=== PATIENT | female | born 1975 | race Hispanic/Latino ===

== ENCOUNTER 2020-08-19 10:00 | Inpatient (IN) | payer MEDICARE ==
[~2020-08-19] VITALS: Ht 144.8 cm; Wt 54.9 kg
[2020-08-19 10:33] LABS: BASOPHILS % (AUTO) 0.3 % (0.0-5.0); EOSINOPHILS % (AUTO) 4.4 % (0.0-8.0); HEMATOCRIT 31.2 % (36-48); MEAN CORPUSCULAR HEMOGLOBIN 30.5 pg (27.0-33.0); MEAN CORPUSCULAR HGB CONC 32.7 g/dL (32.0-36.0); MEAN CORPUSCULAR VOLUME 93.4 fL (79-99); NEUTROPHILS % (AUTO) 82.9 % (40.0-77.0); PLATELET COUNT (AUTO) 326 K/uL (130-400); RED BLOOD CELL COUNT(AUTO) 3.34 MIL/uL (4.00-5.50); RED CELL DISTRIBUTION WIDTH 17.7 % (11.0-15.5); WHITE BLOOD COUNT (AUTO) 17.2 K/uL (4.8-10.8)
[2020-08-19 10:44] LABS: CARBON DIOXIDE 28 mmol/L (21-32); CHLORIDE 91 mmol/L (101-111); CREATININE 4.5 mg/dL (0.5-1.5); GLOMERULAR FILTR. RATE CALC 11 mL/min (>60); GLUCOSE,RANDOM 232 mg/dL (70-105); POTASSIUM 4.4 mmol/L (3.5-5.1); SODIUM SERUM 128 mmol/L (136-145); UREA NITROGEN, BLOOD 69 mg/dL (7-18)
[2020-08-19 10:45] LABS: PROTHROMBIN TIME 10.9 SEC (9.6-11.6)
[2020-08-19 10:46] LABS: PARTIAL THROMBOPLASTIN TIME 23.9 SEC (26.3-35.5)
[2020-08-19 10:55] LABS: ALANINE AMINOTRANSFERASE 38 U/L (12-78); ALBUMIN 2.8 g/dL (3.5-5.0); ASPARTATE AMINOTRANSFERASE 39 U/L (10-37); BILIRUBIN,TOTAL 0.4 mg/dL (0.2-1.0); CREATINE KINASE, TOTAL 98 U/L (21-232); MYOGLOBIN 192 ng/mL (10-92); TROPONIN I < 0.04 ng/mL (0.00-0.06)
[2020-08-19] MEDS ORDERED: 0.9%NACL 1000ML 1,000 ML IV ONE (13:10)
[2020-08-19 13:11] LABS: APPEARANCE,URINE Turbid (CLEAR); BILIRUBIN,URINE Negative (NEGATIVE); COLOR,URINE Yellow (YELLOW); GLUCOSE, URINE (UA) 500 mg/dL (NEGATIVE); KETONES,URINE Negative (NEGATIVE); LEUKOCYTE ESTERASE ,URINE Small (NEGATIVE); NITRATE,URINE Negative (NEGATIVE); OCCULT BLOOD,URINE Large (NEGATIVE); PROTEIN,URINE >=1000 mg/dL (NEGATIVE); UROBILINOGEN,URINE 0.2 mg/dL (0.2-1.0)
[2020-08-19 13:22] LABS: AMPHET/METH SCREEN,URINE NEGATIVE (NEGATIVE); BARBITURATE SCREEN, URINE NEGATIVE (NEGATIVE); BENZODIAZEPINES SCREEN,URINE NEGATIVE (NEGATIVE); CANNABINOID SCREEN,URINE NEGATIVE (NEGATIVE); COCAINE SCREEN,URINE NEGATIVE (NEGATIVE); OPIATE SCREEN,URINE NEGATIVE (NEGATIVE); PHENCYCLIDINE SCREEN,URINE NEGATIVE (NEGATIVE)
[2020-08-19 13:25] LABS: BACTERIA,URINE Few /HPF (None Seen); WBC,URINE >100 /HPF (0-1)
[2020-08-19 13:26] LABS: ABG BASE EXCESS 2.3 mmol/L (-2.0-3.0); ABG HCO3 26.9 mmol/L (21.0-28.0); ABG OXYGEN SATURATION 92.5 % (95.0-99.0); ABG PCO2 42 mmHg (32-45)
[2020-08-19 13:26] LABS: MUCUS,URINE Few LPF (None Seen); RENAL EPITHELIAL CELLS,URINE Rare /HPF (None Seen); TRANSITIONAL EPI CELLS,URINE Few /HPF (None Seen)
[2020-08-19] MEDS ORDERED: VANCOMYCIN 1G/250ML KIT 250 ML IV ONE (13:51)
[2020-08-19] MEDS ORDERED: VANCOMYCIN 1G/250ML KIT 250 ML IV SCH (14:00)
[2020-08-19] MEDS ORDERED: ZOSYN 3.375GM+NS 50ML 50 ML IV SCH (14:30)
[2020-08-19] MEDS ORDERED: ZOSYN 3.375GM+NS 50ML 50 ML IV ONE ×2 (16:24→23:05)
[2020-08-19] MEDS ORDERED: ONDANSETRON 4MG INJ IVP PRN (17:15)
[2020-08-19] MEDS ORDERED: VANCOMYCIN PROTOCOL PER PHARMACY IV SCH (17:15)
[2020-08-19] MEDS ORDERED: AZITHROMYCIN 500MG+NS 250ML 250 ML IV ONE (23:37)
[2020-08-20] MEDS ORDERED: ZOSYN 3.375GM+NS 50ML 50 ML IV ONE ×2 (08:46→20:57)
[2020-08-20] MEDS ORDERED: PANTOPRAZOLE 40 MG/VIAL ONE (08:46)
[2020-08-20] MEDS ORDERED: PANTOPRAZOLE 40 MG/VIAL IVP SCH (09:00)
[2020-08-20] MEDS ORDERED: METOPROLOL TARTRATE 25 MG TAB ONE (15:20)
[2020-08-20] MEDS ORDERED: HYDRALAZINE 25MG TABLET ONE ×3 (15:20→20:47)
[2020-08-20] MEDS ORDERED: LEVETIRACETAM 500 MG TABLET PO ONE (15:24)
[2020-08-21] MEDS ORDERED: HYDRALAZINE 25MG TABLET ONE ×2 (08:29→13:41)
[2020-08-21] MEDS ORDERED: LEVOTHYROXINE 100 MCG TABLET ONE (08:30)
[2020-08-21] MEDS ORDERED: ZOSYN 3.375GM+NS 50ML 50 ML IV ONE ×2 (08:30→20:35)
[2020-08-21] MEDS ORDERED: AMLODIPINE 5 MG TAB ONE (08:30)
[2020-08-21] MEDS ORDERED: SERTRALINE HCL 50 MG TABLET ONE (08:30)
[2020-08-21] MEDS ORDERED: LEVETIRACETAM 500 MG TABLET PO ONE (08:31)
[2020-08-21] MEDS ORDERED: METOPROLOL TARTRATE 25 MG TAB ONE (08:31)
[2020-08-21 08:51] LABS: BASOPHILS % (AUTO) 0.3 % (0.0-5.0); EOSINOPHILS % (AUTO) 6.3 % (0.0-8.0); HEMATOCRIT 28.3 % (36-48); LYMPHOCYTES % (AUTO) 8.5 % (21.0-51.0); MEAN CORPUSCULAR HEMOGLOBIN 30.9 pg (27.0-33.0); MEAN CORPUSCULAR HGB CONC 33.6 g/dL (32.0-36.0); MEAN CORPUSCULAR VOLUME 92.2 fL (79-99); MONOCYTES % (AUTO) 6.7 % (3.0-13.0); NEUTROPHILS % (AUTO) 77.7 % (40.0-77.0); PLATELET COUNT (AUTO) 324 K/uL (130-400); RED BLOOD CELL COUNT(AUTO) 3.07 MIL/uL (4.00-5.50); RED CELL DISTRIBUTION WIDTH 16.7 % (11.0-15.5); WHITE BLOOD COUNT (AUTO) 9.4 K/uL (4.8-10.8)
[2020-08-21 09:01] LABS: CREATININE 3.7 mg/dL (0.5-1.5); POTASSIUM 3.5 mmol/L (3.5-5.1)
[2020-08-21 09:06] LABS: ALBUMIN 2.5 g/dL (3.5-5.0); BILIRUBIN,TOTAL 0.8 mg/dL (0.2-1.0); MAGNESIUM 2.4 mg/dL (1.80-2.40); PHOSPHORUS 4.4 mg/dL (2.5-4.9); TOTAL PROTEIN, SERUM 8.7 g/dL (6.0-8.3)
[2020-08-21] MEDS ORDERED: VANCOMYCIN 1G/250ML KIT 250 ML IV ONE (13:41)
[2020-08-21] MEDS: VANCOMYCIN 1G/250ML KIT 250 ML IV SCH (14:00)
[2020-08-21] MEDS: ZOSYN 3.375GM+NS 50ML 50 ML IV SCH (21:00)
[2020-08-22] VITALS: BP 183/82
[2020-08-22 04:08] VITALS: BP 154/79
[2020-08-22] MEDS ORDERED: HYDR50TA36 PEG (08:09)
[2020-08-22] MEDS ORDERED: METO25 PEG (08:09)
[2020-08-22] MEDS ORDERED: ATOR10TA69 PEG (08:09)
[2020-08-22] MEDS ORDERED: LEVO50TA11 PEG (08:09)
[2020-08-22] MEDS ORDERED: PANT40TA54 PEG (08:13)
[2020-08-22] MEDS ORDERED: LEVE500L PEG (08:13)
[2020-08-22] MEDS ORDERED: AMLO-257 PEG (08:13)
[2020-08-22] MEDS ORDERED: SERT-439 PEG (08:13)
[2020-08-22 08:14] LABS: HEPATITIS A ANTIBODY IGM Negative (Negative); HEPATITIS B CORE IGM Negative (Negative); HEPATITIS Bs ANTIGEN SCREEN P Negative (Negative)
[2020-08-22] MEDS: FAMOTIDINE 20MG VIAL IV SCH (08:34)
[2020-08-22 09:45] VITALS: BP 170/87
[2020-08-22] MEDS ORDERED: HEPARIN 5,000 UNIT VIAL ONE (11:58)
[2020-08-22 12:20] VITALS: BP 109/69
[2020-08-22 17:19] VITALS: BP 117/84
[2020-08-22 20:00] VITALS: BP_SYST 142; BP_SYST 176; BP_DIAS 63; BP_DIAS 86
[2020-08-22] MEDS ORDERED: SERTRALINE HCL 50 MG TABLET PEG SCH (21:00)
[2020-08-22] MEDS: LEVETIRACETAM 100 MG/ML 5 ML UDCUP PEG SCH (22:11)
[2020-08-22] MEDS: METOPROLOL TARTRATE 25 MG TAB PEG SCH (22:11)
[2020-08-22] MEDS: HYDRALAZINE 25MG TABLET PEG SCH (22:12)
[2020-08-22] MEDS: ZOSYN 3.375GM+NS 50ML 50 ML IV SCH (22:12)
[2020-08-23] VITALS: BP 186/82
[2020-08-23 04:00] VITALS: BP 166/74
[2020-08-23 08:01] VITALS: BP 166/87
[2020-08-23 11:11] VITALS: BP 168/79
[2020-08-23] MEDS: METOPROLOL TARTRATE 25 MG TAB PEG SCH (11:26)
[2020-08-23] MEDS: ZOSYN 3.375GM+NS 50ML 50 ML IV SCH (11:27)
[2020-08-23] MEDS: FAMOTIDINE 20MG VIAL IV SCH (11:27)
[2020-08-23] MEDS: HYDRALAZINE 25MG TABLET PEG SCH ×2 (11:27→15:18)
[2020-08-23 15:18] LABS: HEMATOCRIT 30.9 % (36-48); MEAN CORPUSCULAR HEMOGLOBIN 30.2 pg (27.0-33.0); MEAN CORPUSCULAR VOLUME 91.4 fL (79-99); PLATELET COUNT (AUTO) 212 K/uL (130-400); RED BLOOD CELL COUNT(AUTO) 3.38 MIL/uL (4.00-5.50); RED CELL DISTRIBUTION WIDTH 16.1 % (11.0-15.5); WHITE BLOOD COUNT (AUTO) 6.5 K/uL (4.8-10.8)
[2020-08-23] MEDS: VANCOMYCIN 1G/250ML KIT 250 ML IV SCH (15:18)
[2020-08-23] MEDS: LEVETIRACETAM 100 MG/ML 5 ML UDCUP PEG SCH (15:18)
[2020-08-23 15:25] LABS: CREATININE 3.8 mg/dL (0.5-1.5); MAGNESIUM 2.4 mg/dL (1.80-2.40); POTASSIUM 3.6 mmol/L (3.5-5.1)
[2020-08-23 15:33] LABS: BAND NEUTROPHILS % (MANUAL) 2 % (0-2); EOSINOPHILS % (MANUAL) 4 % (1-6); LYMPHOCYTES % (MANUAL) 11 % (22-44); MAN.DIFF COMMENT-IMPRESSION MANUAL DIFFERENTIAL; MONOCYTES % (MANUAL) 6 % (2-9); REACTIVE LYMPHOCYTES 4 % (0-0); SEGMENTED NEUTROPHILS % 73 % (40-70)
[2020-08-23 16:27] VITALS: BP 138/60
[2020-11-25] MEDS ORDERED: CALC667C10 PO (20:12)
== END 2020-08-23 18:39 | disposition home health service (06) | DRG 871 ==
LOC: EDH 10:00 → EDHIP 16:05 → 3AH 08-20 04:44 → EDHIP 08-20 04:59 → 3BH 08-21 22:19
PROVIDERS: ADMIT Internal Medicine; ATTEND Internal Medicine
PROC: 5A1D70Z Performance of Urinary Filtration, Intermittent, Less than 6 Hours Per Day (ICD-10-PCS; principal; 2020-08-19)
PROC: 5A1D70Z Performance of Urinary Filtration, Intermittent, Less than 6 Hours Per Day (ICD-10-PCS; 2020-08-22)
DX: A41.50 Gram-negative sepsis, unspecified (principal); G93.41 Metabolic encephalopathy; N18.6 End stage renal disease; E87.1 Hypo-osmolality and hyponatremia; N39.0 Urinary tract infection, site not specified; I12.0 Hypertensive chronic kidney disease with stage 5 chronic kidney disease or end stage renal disease; G91.9 Hydrocephalus, unspecified; E11.22 Type 2 diabetes mellitus with diabetic chronic kidney disease; R53.81 Other malaise; D63.8 Anemia in other chronic diseases classified elsewhere; E87.5 Hyperkalemia; Z20.822 Contact with and (suspected) exposure to COVID-19; Z93.1 Gastrostomy status; Z99.2 Dependence on renal dialysis; Z74.01 Bed confinement status; Z86.14 Personal history of Methicillin resistant Staphylococcus aureus infection; Z98.2 Presence of cerebrospinal fluid drainage device; Z86.73 Personal history of transient ischemic attack (TIA), and cerebral infarction without residual deficits; Z83.3 Family history of diabetes mellitus
CPT/HCPCS: 36415; 36600; 70450; 71045; 80048; 80053; 80074; 80305; 81001; 82550; 82803; 83605; 83735; 83874; 84100; 84145; 84484; 85025; 85610; 85730; 86900; 86901; 87040; 87088; 87426; 90935; 93005; C9113; G0378; J0456; J1644; J2543; J3370; J3490; J7030; U0003

== ENCOUNTER → 2020-11-01 | Outpatient (CLI) | payer MEDICARE ==
[~2020-11-01] MED LIST: AMLO-257 PEG; ATOR10TA69 PEG; HYDR50TA36 PEG; LEVE500L PEG; LEVO50TA11 PEG; METO25 PEG; PANT40TA54 PEG; SERT-439 PEG
== END | disposition home or self-care (01) ==
LOC: RAH 11:00
PROVIDERS: ATTEND Internal Medicine
DX: I62.9 Nontraumatic intracranial hemorrhage, unspecified (principal); R13.10 Dysphagia, unspecified; R47.01 Aphasia; T17.900S Unspecified foreign body in respiratory tract, part unspecified causing asphyxiation, sequela; I63.9 Cerebral infarction, unspecified
CPT/HCPCS: 74230; 92611

== ENCOUNTER 2021-01-04 17:22 | Emergency (ER) | payer MEDICARE ==
[~2021-01-04] VITALS: Ht 157.5 cm; Wt 68.0 kg
[~2021-01-04 17:22] MED LIST changes: -AMLO-257 PEG; +AMLO-257 PO; -ATOR10TA69 PEG; +ATOR10TA69 PO; +CALC667C10 PO; -HYDR50TA36 PEG; +HYDR50TA36 PO; -LEVE500L PEG; +LEVE500L PO; -LEVO50TA11 PEG; +LEVO50TA11 PO; -METO25 PEG; +METO25 PO; -PANT40TA54 PEG; +PANT40TA54 PO; -SERT-439 PEG; +SERT-439 PO
[2021-01-04 17:41] VITALS: BP 156/71
[2021-01-04 18:46] VITALS: BP 135/62
[2021-01-05 00:34] VITALS: BP 135/62
== END 2021-01-04 23:00 | disposition home or self-care (01) ==
LOC: EDH 17:22
DX: G40.909 Epilepsy, unspecified, not intractable, without status epilepticus (principal); I95.9 Hypotension, unspecified; E78.00 Pure hypercholesterolemia, unspecified; N18.6 End stage renal disease; Z86.73 Personal history of transient ischemic attack (TIA), and cerebral infarction without residual deficits; Z99.2 Dependence on renal dialysis; Z79.899 Other long term (current) drug therapy
CPT/HCPCS: 70450; 93005

== ENCOUNTER 2021-01-25 00:26 | Emergency (ER) | payer MEDICARE ==
[~2021-01-25 00:26] MED LIST changes: +AMLO-257 PEG; -AMLO-257 PO; +ATOR10TA69 PEG; -ATOR10TA69 PO; +HYDR50TA36 PEG; -HYDR50TA36 PO; +LEVE500L PEG; -LEVE500L PO; +LEVO50TA11 PEG; -LEVO50TA11 PO; +METO25 PEG; -METO25 PO; +PANT40TA54 PEG; -PANT40TA54 PO; +SERT-439 PEG; -SERT-439 PO
[2021-01-25 00:35] VITALS: BP 166/66
[2021-01-25] MEDS ORDERED: PHARMACY COMMUNICATION MISC SCH (01:30)
[2021-01-25 01:35] LABS: BASOPHILS % (AUTO) 0.4 % (0.0-5.0); EOSINOPHILS % (AUTO) 0.8 % (0.0-8.0); HEMATOCRIT 48.2 % (36-48); LYMPHOCYTES % (AUTO) 9.9 % (21.0-51.0); MEAN CORPUSCULAR HEMOGLOBIN 28.1 pg (27.0-33.0); MEAN CORPUSCULAR HGB CONC 30.9 g/dL (32.0-36.0); MEAN CORPUSCULAR VOLUME 90.8 fL (79-99); MONOCYTES % (AUTO) 4.7 % (3.0-13.0); NEUTROPHILS % (AUTO) 83.9 % (40.0-77.0); PLATELET COUNT (AUTO) 326 K/uL (130-400); RED BLOOD CELL COUNT(AUTO) 5.31 MIL/uL (4.00-5.50); RED CELL DISTRIBUTION WIDTH 17.7 % (11.0-15.5); WHITE BLOOD COUNT (AUTO) 7.2 K/uL (4.8-10.8)
[2021-01-25] MEDS ORDERED: LEVETIRACETAM 1,500 MG in 0.9%NACL 100ML 100 ML IV STA (01:49)
[2021-01-25 01:55] VITALS: BP 156/59
[2021-01-25] MEDS ORDERED: LEVETIRACETAM 500 MG/5 ML SD VIAL IV ONE (01:55)
[2021-01-25] MEDS ORDERED: LEVETIRACETAM 1,500 MG in 0.9%NACL 100ML 100 ML IV ONE (02:00)
[2021-01-25] MEDS ORDERED: ASPIRIN 325MG TAB PO ONE ×2 (02:30)
[2021-01-25 02:42] LABS: CREATININE 5.2 mg/dL (0.5-1.5); POTASSIUM 4.3 mmol/L (3.5-5.1)
[2021-01-25 02:46] LABS: ALBUMIN 3.6 g/dL (3.5-5.0); BILIRUBIN,TOTAL 0.3 mg/dL (0.2-1.0); MAGNESIUM 2.4 mg/dL (1.80-2.40)
[2021-01-25 02:55] VITALS: BP_SYST 134; BP_SYST 148; BP_DIAS 64; BP_DIAS 82
[2021-01-25 03:36] VITALS: BP 134/77
[2021-01-25 05:57] VITALS: BP 119/85
[2021-01-25] MEDS ORDERED: LEVETIRACETAM 1,500 MG in 0.9%NACL 100ML 100 ML IV SCH (06:00)
== END 2021-01-25 06:07 | disposition home or self-care (01) ==
LOC: EDH 00:26
DX: G40.909 Epilepsy, unspecified, not intractable, without status epilepticus (principal); E11.22 Type 2 diabetes mellitus with diabetic chronic kidney disease; N18.9 Chronic kidney disease, unspecified; Z99.2 Dependence on renal dialysis; Z86.73 Personal history of transient ischemic attack (TIA), and cerebral infarction without residual deficits; Z79.899 Other long term (current) drug therapy
CPT/HCPCS: 36415; 70450; 71045; 80053; 83735; 84484; 85025; 93005; 96365; 99285; J1953 ×2

== ENCOUNTER 2021-05-01 10:52 | Inpatient (IN) | payer MEDICARE ==
[~2021-05-01] VITALS: Ht 157.5 cm; Wt 45.8 kg
[2021-05-01] VITALS (16 sets, daily range): BP systolic 95–175; BP diastolic 54–81
[~2021-05-01 10:52] MED LIST changes: -AMLO-257 PEG; +AMLO-257 PO; -ATOR10TA69 PEG; +ATOR10TA69 PO; -HYDR50TA36 PEG; +HYDR50TA36 PO; -LEVE500L PEG; +LEVE500L PO; -LEVO50TA11 PEG; +LEVO50TA11 PO; -METO25 PEG; +METO25 PO; -PANT40TA54 PEG; +PANT40TA54 PO; -SERT-439 PEG; +SERT-439 PO
[2021-05-01 11:15] LABS: BASOPHILS % (AUTO) 0.3 % (0.0-5.0); EOSINOPHILS % (AUTO) 0.7 % (0.0-8.0); HEMATOCRIT 27.6 % (36-48); LYMPHOCYTES % (AUTO) 9.5 % (21.0-51.0); MEAN CORPUSCULAR HEMOGLOBIN 27.1 pg (27.0-33.0); MEAN CORPUSCULAR HGB CONC 31.5 g/dL (32.0-36.0); MONOCYTES % (AUTO) 6.6 % (3.0-13.0); NEUTROPHILS % (AUTO) 81.8 % (40.0-77.0); PLATELET COUNT (AUTO) 498 K/uL (130-400); RED BLOOD CELL COUNT(AUTO) 3.21 MIL/uL (4.00-5.50); RED CELL DISTRIBUTION WIDTH 18.2 % (11.0-15.5); WHITE BLOOD COUNT (AUTO) 10.5 K/uL (4.8-10.8)
[2021-05-01 11:53] LABS: ALBUMIN 2.2 g/dL (3.5-5.0); BILIRUBIN,TOTAL 0.4 mg/dL (0.2-1.0); CREATININE 6.4 mg/dL (0.5-1.5); POTASSIUM 3.7 mmol/L (3.5-5.1); TOTAL PROTEIN, SERUM 8.3 g/dL (6.0-8.3)
[2021-05-01 12:05] LABS: INR 1.08 (0.85-1.15); PROTHROMBIN TIME 11.7 SEC (9.6-11.6)
[2021-05-01 12:06] LABS: PARTIAL THROMBOPLASTIN TIME 32.1 SEC (26.3-35.5)
[2021-05-01 15:54] LABS: APPEARANCE,URINE CLOUDY (CLEAR); BILIRUBIN,URINE NEGATIVE (NEGATIVE); COLOR,URINE YELLOW (YELLOW); GLUCOSE, URINE (UA) 500 mg/dL (NEGATIVE); KETONES,URINE NEGATIVE (NEGATIVE); LEUKOCYTE ESTERASE ,URINE SMALL (NEGATIVE); NITRATE,URINE NEGATIVE (NEGATIVE); OCCULT BLOOD,URINE SMALL (NEGATIVE); PROTEIN,URINE >=300 mg/dL (NEGATIVE); UROBILINOGEN,URINE 0.2 mg/dL (0.2-1.0)
[2021-05-01] MEDS ORDERED: ONDANSETRON 4MG INJ IVP PRN (16:00)
[2021-05-01] MEDS ORDERED: HEPARIN 5,000 UNIT VIAL SQ SCH (16:00)
[2021-05-01] MEDS ORDERED: ACETAMINOPHEN 325 MG TAB PO PRN (16:00)
[2021-05-01] MEDS ORDERED: ZOSYN 3.375GM +NS 50ML IV SCH (16:00)
[2021-05-01 16:02] LABS: BACTERIA,URINE Few /HPF (None Seen); WBC,URINE 26-50 /HPF (0-1)
[2021-05-01 16:03] LABS: SQUAMOUS EPITHELIAL CELL,UR Rare /HPF (0-2)
[2021-05-01] MEDS: ZOSYN 3.375GM +NS 50ML IV SCH (22:05)
[2021-05-01] MEDS: HEPARIN 5,000 UNIT VIAL SQ SCH (22:05)
[2021-05-02 04:00] VITALS: BP 158/62
[2021-05-02 04:42] LABS: BASOPHILS % (AUTO) 0.3 % (0.0-5.0); EOSINOPHILS % (AUTO) 0.9 % (0.0-8.0); HEMATOCRIT 30.6 % (36-48); LYMPHOCYTES % (AUTO) 12.7 % (21.0-51.0); MEAN CORPUSCULAR HEMOGLOBIN 26.6 pg (27.0-33.0); MEAN CORPUSCULAR HGB CONC 30.4 g/dL (32.0-36.0); MEAN CORPUSCULAR VOLUME 87.7 fL (79-99); MONOCYTES % (AUTO) 6.4 % (3.0-13.0); NEUTROPHILS % (AUTO) 78.8 % (40.0-77.0); PLATELET COUNT (AUTO) 457 K/uL (130-400); RED BLOOD CELL COUNT(AUTO) 3.49 MIL/uL (4.00-5.50)
[2021-05-02 04:59] LABS: HEMOGLOBIN A1C 6.8 % (4.0-6.0)
[2021-05-02 05:02] LABS: ALBUMIN 2.4 g/dL (3.5-5.0); BILIRUBIN,TOTAL 0.4 mg/dL (0.2-1.0); CREATININE 3.2 mg/dL (0.5-1.5); MAGNESIUM 1.8 mg/dL (1.80-2.40); POTASSIUM 3.9 mmol/L (3.5-5.1); TOTAL PROTEIN, SERUM 8.7 g/dL (6.0-8.3)
[2021-05-02 07:30] VITALS: BP 139/71
[2021-05-02] MEDS: ZOSYN 3.375GM +NS 50ML IV SCH ×2 (08:43→19:53)
[2021-05-02] MEDS: HEPARIN 5,000 UNIT VIAL SQ SCH ×2 (08:57→19:57)
[2021-05-02 11:35] VITALS: BP 122/62
[2021-05-02 15:30] VITALS: BP 135/58
[2021-05-02 19:15] VITALS: BP 151/76
[2021-05-02 23:48] VITALS: BP 163/77
[2021-05-03] VITALS (22 sets, daily range): BP systolic 72–181; BP diastolic 38–83
[2021-05-03 04:35] LABS: HEMATOCRIT 28.3 % (36-48); MEAN CORPUSCULAR HEMOGLOBIN 26.6 pg (27.0-33.0); MEAN CORPUSCULAR HGB CONC 30.7 g/dL (32.0-36.0); MEAN CORPUSCULAR VOLUME 86.5 fL (79-99); RED BLOOD CELL COUNT(AUTO) 3.27 MIL/uL (4.00-5.50); WHITE BLOOD COUNT (AUTO) 6.8 K/uL (4.8-10.8)
[2021-05-03 04:49] LABS: CREATININE 5.1 mg/dL (0.5-1.5); POTASSIUM 4.4 mmol/L (3.5-5.1)
[2021-05-03 06:12] LABS: HEPATITIS Bs ANTIGEN SCREEN P Negative (Negative)
[2021-05-03] MEDS: ZOSYN 3.375GM +NS 50ML IV SCH ×2 (09:07→19:25)
[2021-05-03] MEDS: HEPARIN 5,000 UNIT VIAL SQ SCH ×2 (09:14→21:00)
[2021-05-03] MEDS ORDERED: HEPARIN 5,000 UNIT VIAL IV SCH (19:35)
[2021-05-04] VITALS: BP 149/71
[2021-05-04 04:14] VITALS: BP_SYST 143
[2021-05-04 08:04] VITALS: BP 160/70
[2021-05-04] MEDS: ZOSYN 3.375GM +NS 50ML IV SCH ×2 (09:13→19:29)
[2021-05-04] MEDS: HEPARIN 5,000 UNIT VIAL SQ SCH ×2 (09:15→19:30)
[2021-05-04 10:41] LABS: HEMATOCRIT 28.1 % (36-48); MEAN CORPUSCULAR HEMOGLOBIN 27.1 pg (27.0-33.0); MEAN CORPUSCULAR HGB CONC 31.3 g/dL (32.0-36.0); MEAN CORPUSCULAR VOLUME 86.5 fL (79-99); RED BLOOD CELL COUNT(AUTO) 3.25 MIL/uL (4.00-5.50); RED CELL DISTRIBUTION WIDTH 17.2 % (11.0-15.5)
[2021-05-04 10:50] LABS: CREATININE 3.7 mg/dL (0.5-1.5); POTASSIUM 3.6 mmol/L (3.5-5.1)
[2021-05-04 12:26] VITALS: BP 147/75
[2021-05-04 16:00] VITALS: BP 139/59
[2021-05-04 20:00] VITALS: BP 150/87
[2021-05-05] VITALS (20 sets, daily range): BP systolic 90–163; BP diastolic 51–88
[2021-05-05 06:02] LABS: HEMATOCRIT 28.8 % (36-48); MEAN CORPUSCULAR HEMOGLOBIN 26.8 pg (27.0-33.0); MEAN CORPUSCULAR HGB CONC 30.9 g/dL (32.0-36.0); MEAN CORPUSCULAR VOLUME 86.7 fL (79-99); PLATELET COUNT (AUTO) 396 K/uL (130-400); RED BLOOD CELL COUNT(AUTO) 3.32 MIL/uL (4.00-5.50); RED CELL DISTRIBUTION WIDTH 17.4 % (11.0-15.5); WHITE BLOOD COUNT (AUTO) 6.2 K/uL (4.8-10.8)
[2021-05-05 06:22] LABS: CREATININE 5.5 mg/dL (0.5-1.5); POTASSIUM 3.7 mmol/L (3.5-5.1)
[2021-05-05 07:08] LABS: BAND NEUTROPHILS % (MANUAL) 1 % (0-2); BASOPHILS % (MANUAL) 3 % (0-2); EOSINOPHILS % (MANUAL) 1 % (1-6); LYMPHOCYTES % (MANUAL) 15 % (22-44); MAN.DIFF COMMENT-IMPRESSION MANUAL DIFFERENTIAL; MONOCYTES % (MANUAL) 10 % (2-9); SEGMENTED NEUTROPHILS % 70 % (40-70)
[2021-05-05 07:09] LABS: PLATELET MORPHOLOGY COMMENT ADEQUATE
[2021-05-05] MEDS: ZOSYN 3.375GM +NS 50ML IV SCH ×2 (10:41→19:31)
[2021-05-05] MEDS: HEPARIN 5,000 UNIT VIAL SQ SCH ×2 (10:42→20:25)
[2021-05-06 00:27] VITALS: BP 90/53
[2021-05-06 04:00] VITALS: BP 139/69
[2021-05-06 05:39] LABS: HEMATOCRIT 27.3 % (36-48); MEAN CORPUSCULAR HEMOGLOBIN 26.8 pg (27.0-33.0); MEAN CORPUSCULAR HGB CONC 31.1 g/dL (32.0-36.0); MEAN CORPUSCULAR VOLUME 86.1 fL (79-99); PLATELET COUNT (AUTO) 383 K/uL (130-400); RED BLOOD CELL COUNT(AUTO) 3.17 MIL/uL (4.00-5.50); RED CELL DISTRIBUTION WIDTH 17.2 % (11.0-15.5); WHITE BLOOD COUNT (AUTO) 6.9 K/uL (4.8-10.8)
[2021-05-06 06:06] LABS: CREATININE 3.9 mg/dL (0.5-1.5); POTASSIUM 3.6 mmol/L (3.5-5.1)
[2021-05-06 06:26] LABS: BAND NEUTROPHILS % (MANUAL) 1 % (0-2); BASOPHILS % (MANUAL) 1 % (0-2); EOSINOPHILS % (MANUAL) 2 % (1-6); LYMPHOCYTES % (MANUAL) 13 % (22-44); MAN.DIFF COMMENT-IMPRESSION MANUAL DIFFERENTIAL; MONOCYTES % (MANUAL) 5 % (2-9); PLATELET MORPHOLOGY COMMENT ADEQUATE; REACTIVE LYMPHOCYTES 2 % (0-0); SEGMENTED NEUTROPHILS % 76 % (40-70)
[2021-05-06 08:00] VITALS: BP 126/69
[2021-05-06] MEDS: ZOSYN 3.375GM +NS 50ML IV SCH ×2 (10:20→20:17)
[2021-05-06] MEDS: HEPARIN 5,000 UNIT VIAL SQ SCH ×2 (10:20→20:20)
[2021-05-06 11:43] VITALS: BP 97/56
[2021-05-06 16:00] VITALS: BP 123/74
[2021-05-06 20:06] VITALS: BP 140/74
[2021-05-07] VITALS: BP 124/67
[2021-05-07 03:41] VITALS: BP 164/71
[2021-05-07 04:53] LABS: HEMATOCRIT 27.6 % (36-48); MEAN CORPUSCULAR HEMOGLOBIN 27.4 pg (27.0-33.0); MEAN CORPUSCULAR HGB CONC 31.5 g/dL (32.0-36.0); MEAN CORPUSCULAR VOLUME 86.8 fL (79-99); PLATELET COUNT (AUTO) 353 K/uL (130-400); RED BLOOD CELL COUNT(AUTO) 3.18 MIL/uL (4.00-5.50); RED CELL DISTRIBUTION WIDTH 17.1 % (11.0-15.5); WHITE BLOOD COUNT (AUTO) 6.8 K/uL (4.8-10.8)
[2021-05-07 05:14] LABS: CREATININE 5.8 mg/dL (0.5-1.5); PHOSPHORUS 5.4 mg/dL (2.5-4.9); POTASSIUM 3.8 mmol/L (3.5-5.1)
[2021-05-07 06:07] LABS: BAND NEUTROPHILS % (MANUAL) 1 % (0-2); BASOPHILS % (MANUAL) 1 % (0-2); EOSINOPHILS % (MANUAL) 2 % (1-6); LYMPHOCYTES % (MANUAL) 17 % (22-44); MAN.DIFF COMMENT-IMPRESSION MANUAL DIFFERENTIAL; MONOCYTES % (MANUAL) 8 % (2-9); PLATELET MORPHOLOGY COMMENT ADEQUATE; REACTIVE LYMPHOCYTES 4 % (0-0); SEGMENTED NEUTROPHILS % 67 % (40-70)
[2021-05-07 08:00] VITALS: BP 138/60
[2021-05-07] MEDS: HEPARIN 5,000 UNIT VIAL SQ SCH (09:00)
[2021-05-07] MEDS: ZOSYN 3.375GM +NS 50ML IV SCH (09:34)
[2021-05-07 12:00] VITALS: BP 129/68
[2021-05-07 16:00] VITALS: BP 130/64
== END 2021-05-07 19:15 | disposition home or self-care (01) | DRG 689 ==
LOC: EDH 10:52 → OBSVTOIN 14:29 → EDHIP 14:29 → 3DH 23:25
PROVIDERS: ADMIT Internal Medicine Infectious Disease; ATTEND Internal Medicine Infectious Disease
PROC: 5A1D70Z Performance of Urinary Filtration, Intermittent, Less than 6 Hours Per Day (ICD-10-PCS; principal; 2021-05-01)
PROC: 5A1D70Z Performance of Urinary Filtration, Intermittent, Less than 6 Hours Per Day (ICD-10-PCS; 2021-05-03)
PROC: 5A1D70Z Performance of Urinary Filtration, Intermittent, Less than 6 Hours Per Day (ICD-10-PCS; 2021-05-06)
DX: N39.0 Urinary tract infection, site not specified (principal); N18.6 End stage renal disease; I12.0 Hypertensive chronic kidney disease with stage 5 chronic kidney disease or end stage renal disease; E44.0 Moderate protein-calorie malnutrition; E11.51 Type 2 diabetes mellitus with diabetic peripheral angiopathy without gangrene; E78.5 Hyperlipidemia, unspecified; E11.22 Type 2 diabetes mellitus with diabetic chronic kidney disease; Z20.822 Contact with and (suspected) exposure to COVID-19; F41.9 Anxiety disorder, unspecified; F32.A Depression, unspecified; D64.9 Anemia, unspecified; E78.00 Pure hypercholesterolemia, unspecified; H54.3 Unqualified visual loss, both eyes; R53.81 Other malaise; Z99.2 Dependence on renal dialysis; Z74.01 Bed confinement status; Z98.2 Presence of cerebrospinal fluid drainage device; Z91.19 Patient's noncompliance with other medical treatment and regimen; Z86.73 Personal history of transient ischemic attack (TIA), and cerebral infarction without residual deficits
CPT/HCPCS: 36415; 70450; 71045; 74018; 80048; 80053; 81001; 82140; 82550; 83036; 83735; 83874; 83880; 84100; 84484; 85025; 85027; 85610; 85730; 87088; 87340; 87635; 87804; 90935; 93005; 97039; C9803; G0378; J1644; J2543

== ENCOUNTER 2021-06-16 18:57 | Inpatient (IN) | payer MEDICARE ==
[~2021-06-16] VITALS: Ht 157.5 cm; Wt 45.8 kg
[2021-06-16 19:47] LABS: ABG OXYGEN SATURATION 80.5 % (95.0-99.0); BASE EXCESS,VENOUS BLOOD GAS -1.7 (-2.0-3.0); HCO3,VENOUS BLOOD GAS 24.7 (21.0-28.0); PCO2,VENOUS BLOOD GAS 48 (32-45); PH,VENOUS BLOOD GAS 7.333 (7.350-7.450)
[2021-06-16 20:04] LABS: BASOPHILS % (AUTO) 0.2 % (0.0-5.0); EOSINOPHILS % (AUTO) 3.6 % (0.0-8.0); HEMATOCRIT 33.2 % (36-48); MEAN CORPUSCULAR HEMOGLOBIN 28.5 pg (27.0-33.0); MEAN CORPUSCULAR VOLUME 91.7 fL (79-99); MONOCYTES % (AUTO) 7.2 % (3.0-13.0); NEUTROPHILS % (AUTO) 69.8 % (40.0-77.0); PLATELET COUNT (AUTO) 260 K/uL (130-400); RED BLOOD CELL COUNT(AUTO) 3.62 MIL/uL (4.00-5.50); WHITE BLOOD COUNT (AUTO) 5.3 K/uL (4.8-10.8)
[2021-06-16 20:15] LABS: APPEARANCE,URINE Clear (CLEAR); BILIRUBIN,URINE Negative (NEGATIVE); COLOR,URINE Yellow (YELLOW); GLUCOSE, URINE (UA) TRACE mg/dL (NEGATIVE); KETONES,URINE Negative (NEGATIVE); LEUKOCYTE ESTERASE ,URINE Large (NEGATIVE); NITRATE,URINE Negative (NEGATIVE); OCCULT BLOOD,URINE Small (NEGATIVE); PROTEIN,URINE >=1000 mg/dL (NEGATIVE); UROBILINOGEN,URINE 0.2 mg/dL (0.2-1.0)
[2021-06-16 20:16] LABS: INR 1.02 (0.85-1.15); PROTHROMBIN TIME 11.1 SEC (9.6-11.6)
[2021-06-16 20:23] LABS: AMPHET/METH SCREEN,URINE NEGATIVE (NEGATIVE); BARBITURATE SCREEN, URINE NEGATIVE (NEGATIVE); BENZODIAZEPINES SCREEN,URINE POSITIVE (NEGATIVE); CANNABINOID SCREEN,URINE NEGATIVE (NEGATIVE); COCAINE SCREEN,URINE NEGATIVE (NEGATIVE); OPIATE SCREEN,URINE NEGATIVE (NEGATIVE); PHENCYCLIDINE SCREEN,URINE NEGATIVE (NEGATIVE)
[2021-06-16 20:26] LABS: HCG,QUAL RESULT NEGATIVE (NEGATIVE)
[2021-06-16 20:28] LABS: BACTERIA,URINE Few /HPF (None Seen); WBC,URINE >100 /HPF (0-1)
[2021-06-16 20:29] LABS: SQUAMOUS EPITHELIAL CELL,UR Rare /HPF (0-2); TRANSITIONAL EPI CELLS,URINE Rare /HPF (None Seen)
[2021-06-16 20:38] LABS: MAGNESIUM 1.9 mg/dL (1.80-2.40); PHOSPHORUS 4.3 mg/dL (2.5-4.9)
[2021-06-16 21:09] LABS: CREATININE 4.5 mg/dL (0.5-1.5); POTASSIUM 3.8 mmol/L (3.5-5.1)
[2021-06-16 21:11] LABS: SALICYLATE < 2.8 mg/dL (2.8-20.0)
[2021-06-16 21:12] LABS: ALCOHOL, BLOOD < 3 mg/dL (0-10)
[2021-06-16 21:14] LABS: ACETAMINOPHEN < 1 mcg/mL (10-30)
[2021-06-16 21:18] LABS: ALBUMIN 2.6 g/dL (3.5-5.0); BILIRUBIN,TOTAL 0.2 mg/dL (0.2-1.0); TOTAL PROTEIN, SERUM 6.6 g/dL (6.0-8.3)
[2021-06-16] MEDS ORDERED: CEFTRIAXONE 1G VIAL IVP ONE (21:30)
[2021-06-16] MEDS ORDERED: IOHEXOL-350 50ML VIAL IV ONE (22:12)
[2021-06-17] MEDS ORDERED: NACL IV ONE
[2021-06-17] MEDS ORDERED: ONDANSETRON 4MG TABLET PO PRN (00:30)
[2021-06-17] MEDS ORDERED: ACETAMINOPHEN 325 MG TAB PO PRN ×2 (00:30)
[2021-06-17] MEDS: ZOSYN 3.375GM+NS 50ML 50 ML IV SCH ×2 (00:30→13:01)
[2021-06-17 08:22] LABS: HEMATOCRIT 37.8 % (36-48); MEAN CORPUSCULAR HEMOGLOBIN 28.9 pg (27.0-33.0); MEAN CORPUSCULAR HGB CONC 31.2 g/dL (32.0-36.0); MEAN CORPUSCULAR VOLUME 92.6 fL (79-99); RED BLOOD CELL COUNT(AUTO) 4.08 MIL/uL (4.00-5.50); WHITE BLOOD COUNT (AUTO) 3.9 K/uL (4.8-10.8)
[2021-06-17 08:34] LABS: CREATININE 4.7 mg/dL (0.5-1.5); MAGNESIUM 1.9 mg/dL (1.80-2.40); POTASSIUM 3.7 mmol/L (3.5-5.1)
[2021-06-17] MEDS: HYDRALAZINE 20MG/ML VIAL IV SCH ×3 (09:00→09:44)
[2021-06-17] MEDS: PANTOPRAZOLE 40 MG TAB DR PO SCH (13:01)
[2021-06-17] MEDS: AMLODIPINE 5 MG TAB PO SCH (13:01)
[2021-06-17] MEDS: CALCIUM AC 667MG CAP PO SCH ×2 (13:01→17:00)
[2021-06-17 15:25] VITALS: BP 156/70
[2021-06-17 20:00] VITALS: BP 190/82
[2021-06-17] MEDS ORDERED: LORAZEPAM 2 MG/ML 1 ML VIAL IVP PRN (20:00)
[2021-06-17] MEDS: SERTRALINE HCL 50 MG TABLET PO SCH (21:00)
[2021-06-17] MEDS: METOPROLOL TARTRATE 25 MG TAB PO SCH (21:00)
[2021-06-17] MEDS ORDERED: LEVETIRACETAM 100 MG/ML 5 ML UDCUP PO SCH (21:00)
[2021-06-17] MEDS: ATORVASTATIN 10 MG TABLET PO SCH (21:00)
[2021-06-17] MEDS ORDERED: ONDANSETRON 4MG INJ IVP PRN (23:30)
[2021-06-17] MEDS: LEVETIRACETAM 500 MG in 0.9%NACL 100ML 100 ML IV SCH (23:46)
[2021-06-18] VITALS (20 sets, daily range): BP systolic 100–204; BP diastolic 69–118
[2021-06-18] MEDS: ZOSYN 3.375GM+NS 50ML 50 ML IV SCH ×3 (00:32→23:53)
[2021-06-18] MEDS: HYDRALAZINE 25MG TABLET PO PRN (05:16)
[2021-06-18 05:33] LABS: BASOPHILS % (AUTO) 0.3 % (0.0-5.0); EOSINOPHILS % (AUTO) 0.9 % (0.0-8.0); HEMATOCRIT 32.5 % (36-48); LYMPHOCYTES % (AUTO) 11.8 % (21.0-51.0); MEAN CORPUSCULAR HEMOGLOBIN 28.1 pg (27.0-33.0); MEAN CORPUSCULAR HGB CONC 30.8 g/dL (32.0-36.0); MEAN CORPUSCULAR VOLUME 91.3 fL (79-99); MONOCYTES % (AUTO) 4.7 % (3.0-13.0); PLATELET COUNT (AUTO) 279 K/uL (130-400); RED BLOOD CELL COUNT(AUTO) 3.56 MIL/uL (4.00-5.50); RED CELL DISTRIBUTION WIDTH 14.6 % (11.0-15.5); WHITE BLOOD COUNT (AUTO) 5.8 K/uL (4.8-10.8)
[2021-06-18 05:44] LABS: ALBUMIN 2.6 g/dL (3.5-5.0); CARBON DIOXIDE 22 mmol/L (21-32); CHLORIDE 109 mmol/L (101-111); CREATININE 5.6 mg/dL (0.5-1.5); GLOMERULAR FILTR. RATE CALC 9 mL/min (>60); GLUCOSE,RANDOM 145 mg/dL (70-105); PHOSPHORUS 5.3 mg/dL (2.5-4.9); POTASSIUM 3.8 mmol/L (3.5-5.1); SODIUM SERUM 144 mmol/L (136-145); UREA NITROGEN, BLOOD 35 mg/dL (7-18)
[2021-06-18 05:45] LABS: ASPARTATE AMINOTRANSFERASE 10 U/L (10-37); BILIRUBIN,TOTAL 0.2 mg/dL (0.2-1.0); TOTAL PROTEIN, SERUM 6.7 g/dL (6.0-8.3)
[2021-06-18 05:46] LABS: ALANINE AMINOTRANSFERASE < 6 U/L (12-78)
[2021-06-18] MEDS: PANTOPRAZOLE 40 MG TAB DR PO SCH (06:15)
[2021-06-18] MEDS ORDERED: GUAIFENESIN-DM 200/20 MG 10 ML PO PRN (07:30)
[2021-06-18] MEDS: CALCIUM AC 667MG CAP PO SCH ×3 (08:00→16:58)
[2021-06-18] MEDS: Vitamin B Complex/Vit C/Folic Acid PO SCH (09:00)
[2021-06-18] MEDS: METOPROLOL TARTRATE 25 MG TAB PO SCH ×2 (09:22→21:50)
[2021-06-18] MEDS ORDERED: PHARMACY COMMUNICATION MISC SCH (10:00)
[2021-06-18] MEDS: AMLODIPINE 5 MG TAB PO SCH (11:51)
[2021-06-18] MEDS: LEVETIRACETAM 500 MG in 0.9%NACL 100ML 100 ML IV SCH (11:53)
[2021-06-18] MEDS ORDERED: COMPOUND IV MISC 1 EACH IVSOLN MISC PRN (12:00)
[2021-06-18] MEDS ORDERED: LEVETIRACETAM 500 MG in 0.9%NACL 100ML 100 ML IV SCH (12:30)
[2021-06-18] MEDS ORDERED: HEPARIN 5,000 UNIT VIAL IJ PRN (18:30)
[2021-06-18] MEDS ORDERED: LACTULOSE 20 GM/30 ML UDCUP PO SCH (19:00)
[2021-06-18] MEDS: ATORVASTATIN 10 MG TABLET PO SCH (21:50)
[2021-06-18] MEDS: SERTRALINE HCL 50 MG TABLET PO SCH (21:50)
[2021-06-19] VITALS (20 sets, daily range): BP systolic 110–190; BP diastolic 53–96
[2021-06-19] MEDS: LACTULOSE 20 GM/30 ML UDCUP PO SCH ×3 (03:37→13:04)
[2021-06-19] MEDS: PANTOPRAZOLE 40 MG TAB DR PO SCH (05:07)
[2021-06-19 05:26] LABS: HEMATOCRIT 35.7 % (36-48); MEAN CORPUSCULAR HEMOGLOBIN 28.1 pg (27.0-33.0); MEAN CORPUSCULAR HGB CONC 30.5 g/dL (32.0-36.0); PLATELET COUNT (AUTO) 275 K/uL (130-400); RED BLOOD CELL COUNT(AUTO) 3.88 MIL/uL (4.00-5.50); RED CELL DISTRIBUTION WIDTH 14.6 % (11.0-15.5); WHITE BLOOD COUNT (AUTO) 5.2 K/uL (4.8-10.8)
[2021-06-19 05:45] LABS: EOSINOPHILS % (MANUAL) 1 % (1-6); LYMPHOCYTES % (MANUAL) 7 % (22-44); MAN.DIFF COMMENT-IMPRESSION MANUAL DIFFERENTIAL; MONOCYTES % (MANUAL) 4 % (2-9); SEGMENTED NEUTROPHILS % 88 % (40-70)
[2021-06-19 07:45] LABS: CREATININE 4.5 mg/dL (0.5-1.5); POTASSIUM 3.4 mmol/L (3.5-5.1)
[2021-06-19] MEDS: AMLODIPINE 5 MG TAB PO SCH (09:00)
[2021-06-19] MEDS: METOPROLOL TARTRATE 25 MG TAB PO SCH ×2 (09:00→20:18)
[2021-06-19] MEDS: Vitamin B Complex/Vit C/Folic Acid PO SCH (09:10)
[2021-06-19] MEDS: CALCIUM AC 667MG CAP PO SCH ×3 (09:12→17:00)
[2021-06-19] MEDS: ZOSYN 3.375GM+NS 50ML 50 ML IV SCH (12:30)
[2021-06-19] MEDS: LEVETIRACETAM 500 MG in 0.9%NACL 100ML 100 ML IV SCH (20:18)
[2021-06-19] MEDS: SERTRALINE HCL 50 MG TABLET PO SCH (20:19)
[2021-06-19] MEDS: ATORVASTATIN 10 MG TABLET PO SCH (20:19)
[2021-06-19] MEDS ORDERED: LACTULOSE 20 GM/30 ML UDCUP PO PRN (20:30)
[2021-06-20] MEDS: ZOSYN 3.375GM+NS 50ML 50 ML IV SCH ×3 (00:01→23:56)
[2021-06-20 03:49] VITALS: BP 135/73
[2021-06-20] MEDS: PANTOPRAZOLE 40 MG TAB DR PO SCH (05:12)
[2021-06-20 05:19] LABS: ALBUMIN 2.7 g/dL (3.5-5.0); BILIRUBIN,TOTAL 0.4 mg/dL (0.2-1.0); TOTAL PROTEIN, SERUM 7.1 g/dL (6.0-8.3)
[2021-06-20 08:00] VITALS: BP 146/68
[2021-06-20 08:15] LABS: HEPATITIS Bs ANTIGEN SCREEN P Negative (Negative)
[2021-06-20] MEDS: Vitamin B Complex/Vit C/Folic Acid PO SCH (10:20)
[2021-06-20] MEDS: AMLODIPINE 5 MG TAB PO SCH (10:20)
[2021-06-20] MEDS: METOPROLOL TARTRATE 25 MG TAB PO SCH ×2 (10:20→20:38)
[2021-06-20 12:00] VITALS: BP 144/59
[2021-06-20] MEDS: CALCIUM AC 667MG CAP PO SCH ×3 (12:00→17:14)
[2021-06-20 16:00] VITALS: BP 168/75
[2021-06-20] MEDS: LEVETIRACETAM 500 MG in 0.9%NACL 100ML 100 ML IV SCH (17:28)
[2021-06-20 20:00] VITALS: BP 180/91
[2021-06-20] MEDS: ATORVASTATIN 10 MG TABLET PO SCH (20:38)
[2021-06-20] MEDS: SERTRALINE HCL 50 MG TABLET PO SCH (20:38)
[2021-06-20] MEDS: HYDRALAZINE 25MG TABLET PO PRN (23:57)
[2021-06-21] VITALS (20 sets, daily range): BP systolic 80–190; BP diastolic 45–84
[2021-06-21 05:58] LABS: HEMATOCRIT 31.6 % (36-48); MEAN CORPUSCULAR HEMOGLOBIN 27.6 pg (27.0-33.0); PLATELET COUNT (AUTO) 226 K/uL (130-400); RED BLOOD CELL COUNT(AUTO) 3.55 MIL/uL (4.00-5.50); RED CELL DISTRIBUTION WIDTH 13.9 % (11.0-15.5); WHITE BLOOD COUNT (AUTO) 5.1 K/uL (4.8-10.8)
[2021-06-21 06:10] LABS: CREATININE 5.6 mg/dL (0.5-1.5); PHOSPHORUS 4.8 mg/dL (2.5-4.9); POTASSIUM 3.3 mmol/L (3.5-5.1)
[2021-06-21 07:23] LABS: BAND NEUTROPHILS % (MANUAL) 1 % (0-2); EOSINOPHILS % (MANUAL) 4 % (1-6); LYMPHOCYTES % (MANUAL) 27 % (22-44); MAN.DIFF COMMENT-IMPRESSION MANUAL DIFFERENTIAL; MONOCYTES % (MANUAL) 9 % (2-9); SEGMENTED NEUTROPHILS % 59 % (40-70)
[2021-06-21 07:24] LABS: PLATELET MORPHOLOGY COMMENT ADEQUATE
[2021-06-21] MEDS: AMLODIPINE 5 MG TAB PO SCH (08:02)
[2021-06-21] MEDS: Vitamin B Complex/Vit C/Folic Acid PO SCH (08:02)
[2021-06-21] MEDS: METOPROLOL TARTRATE 25 MG TAB PO SCH ×2 (08:02→19:50)
[2021-06-21] MEDS: POLYETHYLENE GLYCOL 3350 17 GM POWD.PACK PO SCH (08:02)
[2021-06-21] MEDS: CALCIUM AC 667MG CAP PO SCH ×3 (08:02→19:50)
[2021-06-21] MEDS: PANTOPRAZOLE 40 MG TAB DR PO SCH (08:02)
[2021-06-21] MEDS: ZOSYN 3.375GM+NS 50ML 50 ML IV SCH (13:02)
[2021-06-21] MEDS: LEVETIRACETAM 500 MG in 0.9%NACL 100ML 100 ML IV SCH (19:50)
[2021-06-21] MEDS: ATORVASTATIN 10 MG TABLET PO SCH (19:50)
[2021-06-21] MEDS: SERTRALINE HCL 50 MG TABLET PO SCH (19:50)
[2021-06-22] VITALS: BP 147/77
[2021-06-22] MEDS: ZOSYN 3.375GM+NS 50ML 50 ML IV SCH ×2 (00:17→12:43)
[2021-06-22 04:00] VITALS: BP 160/65
[2021-06-22 07:00] VITALS: BP 158/73
[2021-06-22] MEDS: Vitamin B Complex/Vit C/Folic Acid PO SCH (09:23)
[2021-06-22] MEDS: METOPROLOL TARTRATE 25 MG TAB PO SCH (09:24)
[2021-06-22] MEDS: POLYETHYLENE GLYCOL 3350 17 GM POWD.PACK PO SCH (09:24)
[2021-06-22] MEDS: CALCIUM AC 667MG CAP PO SCH ×2 (09:25→12:43)
[2021-06-22] MEDS: PANTOPRAZOLE 40 MG TAB DR PO SCH (09:25)
[2021-06-22] MEDS: AMLODIPINE 5 MG TAB PO SCH (09:28)
[2021-06-22 11:00] VITALS: BP 121/70
== END 2021-06-22 17:50 | disposition home or self-care (01) | DRG 70 ==
LOC: EDH 18:57 → EDHIP 23:44 → 3AH 06-17 14:50
PROVIDERS: ADMIT Internal Medicine Infectious Disease; ATTEND Internal Medicine Infectious Disease
PROC: 5A1D70Z Performance of Urinary Filtration, Intermittent, Less than 6 Hours Per Day (ICD-10-PCS; principal; 2021-06-18)
PROC: 5A1D70Z Performance of Urinary Filtration, Intermittent, Less than 6 Hours Per Day (ICD-10-PCS; 2021-06-19)
PROC: 5A1D70Z Performance of Urinary Filtration, Intermittent, Less than 6 Hours Per Day (ICD-10-PCS; 2021-06-21)
DX: G93.40 Encephalopathy, unspecified (principal); N18.6 End stage renal disease; N39.0 Urinary tract infection, site not specified; G91.9 Hydrocephalus, unspecified; I12.0 Hypertensive chronic kidney disease with stage 5 chronic kidney disease or end stage renal disease; I16.0 Hypertensive urgency; G40.909 Epilepsy, unspecified, not intractable, without status epilepticus; E87.6 Hypokalemia; F41.9 Anxiety disorder, unspecified; F32.A Depression, unspecified; E11.22 Type 2 diabetes mellitus with diabetic chronic kidney disease; E78.00 Pure hypercholesterolemia, unspecified; H54.3 Unqualified visual loss, both eyes; E78.5 Hyperlipidemia, unspecified; D64.9 Anemia, unspecified; R53.81 Other malaise; K59.00 Constipation, unspecified; Z99.2 Dependence on renal dialysis; Z93.1 Gastrostomy status; Z74.01 Bed confinement status; Z87.440 Personal history of urinary (tract) infections; Z98.2 Presence of cerebrospinal fluid drainage device; Z91.15 Patient's noncompliance with renal dialysis; Z86.73 Personal history of transient ischemic attack (TIA), and cerebral infarction without residual deficits
CPT/HCPCS: 36415; 36600; 70450; 71045; 71260; 74176; 74177; 80048; 80053; 80305; 81001; 81025; 82140; 82550; 82803; 82948; 83605; 83690; 83735; 83880; 84100; 84484; 85025; 85027; 85610; 86704; 86706; 87040; 87088; 87340; 90935; 93005; 97039; G0378; G0481; J0360; J0696; J1644; J1953; J2060; J2405; J2543; Q9967

== ENCOUNTER 2021-07-12 15:19 | Inpatient (IN) | payer MEDICARE ==
[~2021-07-12] VITALS: Ht 147.3 cm; Wt 39.4 kg
[2021-07-12 15:52] LABS: BASOPHILS % (AUTO) 0.3 % (0.0-5.0); EOSINOPHILS % (AUTO) 0.1 % (0.0-8.0); HEMATOCRIT 34.1 % (36-48); LYMPHOCYTES % (AUTO) 3.1 % (21.0-51.0); MEAN CORPUSCULAR HEMOGLOBIN 27.5 pg (27.0-33.0); MEAN CORPUSCULAR HGB CONC 31.4 g/dL (32.0-36.0); MEAN CORPUSCULAR VOLUME 87.7 fL (79-99); MONOCYTES % (AUTO) 6.5 % (3.0-13.0); NEUTROPHILS % (AUTO) 89.2 % (40.0-77.0); PLATELET COUNT (AUTO) 208 K/uL (130-400); RED BLOOD CELL COUNT(AUTO) 3.89 MIL/uL (4.00-5.50); RED CELL DISTRIBUTION WIDTH 15.2 % (11.0-15.5); WHITE BLOOD COUNT (AUTO) 19.7 K/uL (4.8-10.8)
[2021-07-12 16:01] LABS: CREATININE 2.9 mg/dL (0.5-1.5); POTASSIUM 3.1 mmol/L (3.5-5.1)
[2021-07-12 16:05] LABS: ALBUMIN 2.3 g/dL (3.5-5.0); BILIRUBIN,TOTAL 0.3 mg/dL (0.2-1.0); TOTAL PROTEIN, SERUM 7.4 g/dL (6.0-8.3)
[2021-07-12 16:21] LABS: INR 1.18 (0.85-1.15); PROTHROMBIN TIME 12.7 SEC (9.6-11.6)
[2021-07-12 16:22] LABS: PARTIAL THROMBOPLASTIN TIME 43.9 SEC (26.3-35.5)
[2021-07-12] MEDS ORDERED: MAG/ALUM/SIMETH 30 ML UDCUP PO PRN (18:30)
[2021-07-12] MEDS ORDERED: ZOSYN 3.375GM +NS 50ML IV SCH (18:30)
[2021-07-12] MEDS ORDERED: ACETAMINOPHEN WITH CODEINE 1 TAB TAB PO PRN (18:30)
[2021-07-12] MEDS ORDERED: VANCOMYCIN PROTOCOL PER PHARMACY IV PRN (18:30)
[2021-07-12] MEDS ORDERED: VANCOMYCIN KIT 1 GM/250 ML IV.KIT IV ONE (18:30)
[2021-07-12] MEDS ORDERED: ACETAMINOPHEN 325 MG TAB PO PRN ×2 (18:30)
[2021-07-12] MEDS ORDERED: MORPHINE 2 MG SYG IV PRN (19:30)
[2021-07-12] MEDS ORDERED: VANCOMYCIN 750MG VIAL IVPB ONE (20:00)
[2021-07-12] MEDS: INSULIN HUMULIN R 100 UNIT/ML 3ML SQ SCH (21:23)
[2021-07-12] MEDS: FAMOTIDINE 20MG VIAL IV SCH (21:23)
[2021-07-13] MEDS ORDERED: ZOSYN 3.375GM+NS 50ML 50 ML IV SCH (02:00)
[2021-07-13 06:36] LABS: HEMATOCRIT 32.1 % (36-48); MEAN CORPUSCULAR HEMOGLOBIN 27.1 pg (27.0-33.0); MEAN CORPUSCULAR HGB CONC 31.2 g/dL (32.0-36.0); RED BLOOD CELL COUNT(AUTO) 3.69 MIL/uL (4.00-5.50); RED CELL DISTRIBUTION WIDTH 15.3 % (11.0-15.5); WHITE BLOOD COUNT (AUTO) 13.2 K/uL (4.8-10.8)
[2021-07-13 06:43] LABS: CREATININE 3.8 mg/dL (0.5-1.5); POTASSIUM 3.6 mmol/L (3.5-5.1)
[2021-07-13] MEDS: ZOSYN 3.375GM +NS 50ML IV SCH ×2 (06:46→18:26)
[2021-07-13] MEDS: INSULIN HUMULIN R 100 UNIT/ML 3ML SQ SCH ×4 (07:30→20:34)
[2021-07-13] MEDS ORDERED: VANCOMYCIN 500MG+NS 100ML IVPB IV SCH (17:00)
[2021-07-13] MEDS ORDERED: 0.9%NACL 100ML 100 ML IV SCH (17:00)
[2021-07-13 19:07] VITALS: BP 155/74
[2021-07-13] MEDS: FAMOTIDINE 20MG VIAL IV SCH (19:49)
[2021-07-13 23:40] VITALS: BP 143/60
[2021-07-14 03:46] LABS: BASOPHILS % (AUTO) 0.3 % (0.0-5.0); EOSINOPHILS % (AUTO) 2.1 % (0.0-8.0); HEMATOCRIT 33.9 % (36-48); LYMPHOCYTES % (AUTO) 8.3 % (21.0-51.0); MEAN CORPUSCULAR HEMOGLOBIN 26.6 pg (27.0-33.0); MONOCYTES % (AUTO) 7.9 % (3.0-13.0); NEUTROPHILS % (AUTO) 80.8 % (40.0-77.0); PLATELET COUNT (AUTO) 286 K/uL (130-400); RED BLOOD CELL COUNT(AUTO) 3.94 MIL/uL (4.00-5.50); RED CELL DISTRIBUTION WIDTH 15.4 % (11.0-15.5); WHITE BLOOD COUNT (AUTO) 10.7 K/uL (4.8-10.8)
[2021-07-14 03:59] LABS: ALBUMIN 2.1 g/dL (3.5-5.0); BILIRUBIN,TOTAL 0.4 mg/dL (0.2-1.0); CREATININE 4.9 mg/dL (0.5-1.5); MAGNESIUM 2.2 mg/dL (1.80-2.40); POTASSIUM 3.5 mmol/L (3.5-5.1); TOTAL PROTEIN, SERUM 7.5 g/dL (6.0-8.3)
[2021-07-14 04:19] VITALS: BP 147/71
[2021-07-14] MEDS: ZOSYN 3.375GM +NS 50ML IV SCH ×2 (04:54→18:03)
[2021-07-14] MEDS: INSULIN HUMULIN R 100 UNIT/ML 3ML SQ SCH ×4 (05:47→20:14)
[2021-07-14 06:49] VITALS: BP 144/69
[2021-07-14] MEDS: PHARMACY COMMUNICATION MISC SCH (15:30)
[2021-07-14 15:49] VITALS: BP 162/77
[2021-07-14] MEDS ORDERED: VANCOMYCIN 500MG+NS 100ML IVPB IV SCH (16:00)
[2021-07-14] MEDS: FAMOTIDINE 20MG VIAL IV SCH (20:16)
[2021-07-14 20:28] VITALS: BP 161/77
[2021-07-15] VITALS (19 sets, daily range): BP systolic 98–177; BP diastolic 51–84
[2021-07-15] MEDS: ZOSYN 3.375GM +NS 50ML IV SCH ×2 (05:51→18:27)
[2021-07-15] MEDS: INSULIN HUMULIN R 100 UNIT/ML 3ML SQ SCH ×4 (06:35→22:12)
[2021-07-15 10:07] LABS: BASOPHILS % (AUTO) 0.4 % (0.0-5.0); EOSINOPHILS % (AUTO) 2.1 % (0.0-8.0); HEMATOCRIT 33.6 % (36-48); MEAN CORPUSCULAR HEMOGLOBIN 26.9 pg (27.0-33.0); MEAN CORPUSCULAR HGB CONC 31.3 g/dL (32.0-36.0); MEAN CORPUSCULAR VOLUME 86.2 fL (79-99); MONOCYTES % (AUTO) 7.1 % (3.0-13.0); NEUTROPHILS % (AUTO) 80.9 % (40.0-77.0); PLATELET COUNT (AUTO) 333 K/uL (130-400); RED CELL DISTRIBUTION WIDTH 15.5 % (11.0-15.5); WHITE BLOOD COUNT (AUTO) 9.1 K/uL (4.8-10.8)
[2021-07-15 10:14] LABS: POTASSIUM 3.6 mmol/L (3.5-5.1)
[2021-07-15] MEDS ORDERED: 0.9%NACL 1000ML 2,000 ML IV ONE (13:54)
[2021-07-15] MEDS ORDERED: HEPARIN 5,000 UNIT VIAL IJ SCH (16:00)
[2021-07-15] MEDS: FAMOTIDINE 20MG VIAL IV SCH (22:06)
[2021-07-15] MEDS: PHARMACY COMMUNICATION MISC SCH (23:37)
[2021-07-16] VITALS: BP 127/59
[2021-07-16 03:42] LABS: BASOPHILS % (AUTO) 0.3 % (0.0-5.0); EOSINOPHILS % (AUTO) 1.1 % (0.0-8.0); HEMATOCRIT 33.9 % (36-48); MEAN CORPUSCULAR HEMOGLOBIN 26.5 pg (27.0-33.0); MEAN CORPUSCULAR HGB CONC 31.3 g/dL (32.0-36.0); MEAN CORPUSCULAR VOLUME 84.8 fL (79-99); MONOCYTES % (AUTO) 9.9 % (3.0-13.0); NEUTROPHILS % (AUTO) 74.9 % (40.0-77.0); PLATELET COUNT (AUTO) 377 K/uL (130-400); RED CELL DISTRIBUTION WIDTH 15.4 % (11.0-15.5); WHITE BLOOD COUNT (AUTO) 6.4 K/uL (4.8-10.8)
[2021-07-16 04:00] VITALS: BP 146/75
[2021-07-16 04:09] LABS: CREATININE 3.7 mg/dL (0.5-1.5); POTASSIUM 3.1 mmol/L (3.5-5.1)
[2021-07-16] MEDS: ZOSYN 3.375GM +NS 50ML IV SCH ×2 (05:47→17:18)
[2021-07-16] MEDS: INSULIN HUMULIN R 100 UNIT/ML 3ML SQ SCH ×4 (06:28→20:22)
[2021-07-16 08:00] VITALS: BP 147/87
[2021-07-16 11:05] VITALS: BP 132/69
[2021-07-16] MEDS ORDERED: GENTAMICIN SULFATE/PF 10 MG/1 ML 2ML IV SCH (14:00)
[2021-07-16] MEDS ORDERED: GENTAMICIN SULFATE 60 MG in 0.9%NACL 100ML 100 ML IV SCH (14:30)
[2021-07-16] MEDS ORDERED: LIDOCAINE HCL 1% MDV 50ML VIAL ONE (14:32)
[2021-07-16] MEDS ORDERED: COMPOUND IV MISC 1 EACH IVSOLN MISC PRN (15:00)
[2021-07-16 15:30] VITALS: BP 150/82
[2021-07-16 20:00] VITALS: BP 123/68
[2021-07-16] MEDS: FAMOTIDINE 20MG VIAL IV SCH (20:32)
[2021-07-17] VITALS: BP 164/79
[2021-07-17 04:00] VITALS: BP_SYST 155; BP_SYST 196; BP_DIAS 83; BP_DIAS 91
[2021-07-17 04:04] LABS: HEMATOCRIT 32.9 % (36-48); MEAN CORPUSCULAR HEMOGLOBIN 26.6 pg (27.0-33.0); MEAN CORPUSCULAR VOLUME 85.7 fL (79-99); PLATELET COUNT (AUTO) 417 K/uL (130-400); RED BLOOD CELL COUNT(AUTO) 3.84 MIL/uL (4.00-5.50); RED CELL DISTRIBUTION WIDTH 15.7 % (11.0-15.5); WHITE BLOOD COUNT (AUTO) 7.3 K/uL (4.8-10.8)
[2021-07-17 04:13] LABS: CREATININE 5.9 mg/dL (0.5-1.5); CRP QUANTITATIVE 74.2 mg/L (0.00-9.0); POTASSIUM 3.7 mmol/L (3.5-5.1)
[2021-07-17 04:34] LABS: BASOPHILS % (MANUAL) 1 % (0-2); EOSINOPHILS % (MANUAL) 4 % (1-6); LYMPHOCYTES % (MANUAL) 28 % (22-44); MAN.DIFF COMMENT-IMPRESSION MANUAL DIFFERENTIAL; MONOCYTES % (MANUAL) 3 % (2-9); SEGMENTED NEUTROPHILS % 64 % (40-70)
[2021-07-17 04:35] LABS: PLATELET MORPHOLOGY COMMENT ADEQUATE
[2021-07-17 05:07] LABS: ERYTHROCYTE SEDIMENTATION RATE 118 MM/HR (0-20)
[2021-07-17] MEDS: ZOSYN 3.375GM +NS 50ML IV SCH (06:00)
[2021-07-17 07:05] VITALS: BP 150/73
[2021-07-17] MEDS: INSULIN HUMULIN R 100 UNIT/ML 3ML SQ SCH ×4 (07:30→21:03)
[2021-07-17 11:10] VITALS: BP 124/59
[2021-07-17] MEDS: LEVOFLOXACIN 500 MG TABLET PO SCH (12:55)
[2021-07-17 15:00] VITALS: BP 156/58
[2021-07-17] MEDS ORDERED: 0.9%NACL 100ML 100 ML IV SCH (16:00)
[2021-07-17] MEDS: VANCOMYCIN 500MG+NS 100ML IVPB IV SCH (16:00)
[2021-07-17 20:04] VITALS: BP 179/83
[2021-07-17] MEDS: FAMOTIDINE 20MG VIAL IV SCH (20:49)
[2021-07-18] VITALS (19 sets, daily range): BP systolic 83–213; BP diastolic 48–124
[2021-07-18 05:04] LABS: BASOPHILS % (AUTO) 0.4 % (0.0-5.0); HEMATOCRIT 36.9 % (36-48); LYMPHOCYTES % (AUTO) 18.7 % (21.0-51.0); MEAN CORPUSCULAR HEMOGLOBIN 26.6 pg (27.0-33.0); MEAN CORPUSCULAR HGB CONC 30.9 g/dL (32.0-36.0); MONOCYTES % (AUTO) 7.4 % (3.0-13.0); NEUTROPHILS % (AUTO) 70.9 % (40.0-77.0); PLATELET COUNT (AUTO) 497 K/uL (130-400); RED BLOOD CELL COUNT(AUTO) 4.29 MIL/uL (4.00-5.50); RED CELL DISTRIBUTION WIDTH 15.5 % (11.0-15.5)
[2021-07-18] MEDS: INSULIN HUMULIN R 100 UNIT/ML 3ML SQ SCH ×4 (06:43→21:00)
[2021-07-18] MEDS: ONDANSETRON 4MG INJ IV PRN (21:33)
[2021-07-18] MEDS: FAMOTIDINE 20MG VIAL IV SCH (21:34)
[2021-07-18] MEDS: VANCOMYCIN 500MG+NS 100ML IVPB IV SCH (21:57)
[2021-07-19] VITALS (21 sets, daily range): BP systolic 96–164; BP diastolic 52–87
[2021-07-19 04:41] LABS: BASOPHILS % (AUTO) 0.5 % (0.0-5.0); EOSINOPHILS % (AUTO) 1.4 % (0.0-8.0); HEMATOCRIT 32.7 % (36-48); LYMPHOCYTES % (AUTO) 13.5 % (21.0-51.0); MEAN CORPUSCULAR HEMOGLOBIN 26.4 pg (27.0-33.0); MEAN CORPUSCULAR HGB CONC 31.2 g/dL (32.0-36.0); MEAN CORPUSCULAR VOLUME 84.5 fL (79-99); MONOCYTES % (AUTO) 4.2 % (3.0-13.0); NEUTROPHILS % (AUTO) 79.6 % (40.0-77.0); PLATELET COUNT (AUTO) 526 K/uL (130-400); RED BLOOD CELL COUNT(AUTO) 3.87 MIL/uL (4.00-5.50); RED CELL DISTRIBUTION WIDTH 15.4 % (11.0-15.5); WHITE BLOOD COUNT (AUTO) 8.4 K/uL (4.8-10.8)
[2021-07-19] MEDS: INSULIN HUMULIN R 100 UNIT/ML 3ML SQ SCH ×4 (06:03→21:00)
[2021-07-19 09:17] LABS: HEMATOCRIT 37.4 % (36-48); MEAN CORPUSCULAR HEMOGLOBIN 26.8 pg (27.0-33.0); MEAN CORPUSCULAR VOLUME 86.4 fL (79-99); PLATELET COUNT (AUTO) 547 K/uL (130-400); RED BLOOD CELL COUNT(AUTO) 4.33 MIL/uL (4.00-5.50); RED CELL DISTRIBUTION WIDTH 15.8 % (11.0-15.5); WHITE BLOOD COUNT (AUTO) 6.3 K/uL (4.8-10.8)
[2021-07-19 09:22] LABS: CREATININE 5.7 mg/dL (0.5-1.5)
[2021-07-19 09:41] LABS: BASOPHILS % (MANUAL) 1 % (0-2); EOSINOPHILS % (MANUAL) 4 % (1-6); LYMPHOCYTES % (MANUAL) 27 % (22-44); MAN.DIFF COMMENT-IMPRESSION MANUAL DIFFERENTIAL; MONOCYTES % (MANUAL) 3 % (2-9); PLATELET MORPHOLOGY COMMENT MARKED INCREASE; SEGMENTED NEUTROPHILS % 65 % (40-70)
[2021-07-19] MEDS ORDERED: LEVO500T90 PO (11:39)
[2021-07-19] MEDS: LEVOFLOXACIN 500 MG TABLET PO SCH (12:14)
[2021-07-19] MEDS: METOPROLOL TARTRATE 25 MG TAB PO SCH (21:00)
[2021-07-19] MEDS: FAMOTIDINE 20MG VIAL IV SCH (21:35)
[2021-07-19] MEDS: ONDANSETRON 4MG INJ IV PRN (21:37)
[2021-07-20 04:00] VITALS: BP 88/58
[2021-07-20 04:16] LABS: HEMATOCRIT 35.8 % (36-48); MEAN CORPUSCULAR HEMOGLOBIN 26.6 pg (27.0-33.0); MEAN CORPUSCULAR HGB CONC 31.3 g/dL (32.0-36.0); PLATELET COUNT (AUTO) 519 K/uL (130-400); RED BLOOD CELL COUNT(AUTO) 4.21 MIL/uL (4.00-5.50); RED CELL DISTRIBUTION WIDTH 15.9 % (11.0-15.5); WHITE BLOOD COUNT (AUTO) 6.3 K/uL (4.8-10.8)
[2021-07-20 04:38] LABS: CREATININE 4.1 mg/dL (0.5-1.5); POTASSIUM 4.1 mmol/L (3.5-5.1)
[2021-07-20 04:51] LABS: LYMPHOCYTES % (MANUAL) 24 % (22-44); MAN.DIFF COMMENT-IMPRESSION MANUAL DIFFERENTIAL; MONOCYTES % (MANUAL) 4 % (2-9); PLATELET MORPHOLOGY COMMENT INCREASED; SEGMENTED NEUTROPHILS % 72 % (40-70)
[2021-07-20 05:00] VITALS: BP 98/50
[2021-07-20] MEDS: INSULIN HUMULIN R 100 UNIT/ML 3ML SQ SCH ×2 (06:05→11:30)
[2021-07-20 08:00] VITALS: BP 98/57
[2021-07-20 08:14] LABS: HEPATITIS Bs ANTIGEN SCREEN P Negative (Negative)
[2021-07-20] MEDS: METOPROLOL TARTRATE 25 MG TAB PO SCH (09:00)
[2021-07-20 11:47] VITALS: BP 115/48
[2021-07-20 16:00] VITALS: BP 95/67
== END 2021-07-20 17:48 | disposition home or self-care (01) | DRG 314 ==
LOC: EDH 15:19 → EDHIP 18:28 → 4BH 07-13 16:44 → 4CH 07-20 01:26 → 4DH 07-20 07:54
PROVIDERS: ADMIT Internal Medicine; ATTEND Internal Medicine
PROC: 5A1D70Z Performance of Urinary Filtration, Intermittent, Less than 6 Hours Per Day (ICD-10-PCS; 2021-07-15)
PROC: 05PYX3Z Removal of Infusion Device from Upper Vein, External Approach (ICD-10-PCS; principal; 2021-07-16)
PROC: 5A1D70Z Performance of Urinary Filtration, Intermittent, Less than 6 Hours Per Day (ICD-10-PCS; 2021-07-18)
PROC: 5A1D70Z Performance of Urinary Filtration, Intermittent, Less than 6 Hours Per Day (ICD-10-PCS; 2021-07-19)
DX: T82.7XXA Infection and inflammatory reaction due to other cardiac and vascular devices, implants and grafts, initial encounter (principal); N18.6 End stage renal disease; J18.9 Pneumonia, unspecified organism; K86.1 Other chronic pancreatitis; I12.0 Hypertensive chronic kidney disease with stage 5 chronic kidney disease or end stage renal disease; G93.40 Encephalopathy, unspecified; D64.9 Anemia, unspecified; E11.22 Type 2 diabetes mellitus with diabetic chronic kidney disease; G40.909 Epilepsy, unspecified, not intractable, without status epilepticus; H54.3 Unqualified visual loss, both eyes; Z20.822 Contact with and (suspected) exposure to COVID-19; E87.6 Hypokalemia; Y84.1 Kidney dialysis as the cause of abnormal reaction of the patient, or of later complication, without mention of misadventure at the time of the procedure; Z99.2 Dependence on renal dialysis; Z74.01 Bed confinement status; Y92.89 Other specified places as the place of occurrence of the external cause; Z98.2 Presence of cerebrospinal fluid drainage device; Z86.73 Personal history of transient ischemic attack (TIA), and cerebral infarction without residual deficits; Z82.3 Family history of stroke; Z83.3 Family history of diabetes mellitus
CPT/HCPCS: 36415; 36589; 71045; 80048; 80053; 80202; 82550; 82948; 83605; 83735; 84100; 84484; 85025; 85027; 85610; 85651; 85730; 86140; 86704; 86706; 87040; 87070; 87076; 87077; 87186; 87340; 87635; 90935; 93306; G0378; J1580; J1644; J1815; J2405; J2543; J3370; J3490; J7030

== ENCOUNTER 2021-10-04 14:41 | Emergency (ER) | payer MEDICARE ==
[~2021-10-04] VITALS: Ht 162.6 cm; Wt 72.6 kg
[~2021-10-04 14:41] MED LIST changes: +CALC667T6 PO; +LEVE250T PO; -LEVE500L PO
[2021-10-04] MEDS ORDERED: LORAZEPAM 2 MG/ML 1 ML VIAL ONE (15:00)
[2021-10-04 15:09] LABS: BASOPHILS % (AUTO) 0.7 % (0.0-5.0); EOSINOPHILS % (AUTO) 2.3 % (0.0-8.0); HEMATOCRIT 42.6 % (36-48); LYMPHOCYTES % (AUTO) 21.8 % (21.0-51.0); MEAN CORPUSCULAR HEMOGLOBIN 27.4 pg (27.0-33.0); MEAN CORPUSCULAR HGB CONC 30.3 g/dL (32.0-36.0); MEAN CORPUSCULAR VOLUME 90.4 fL (79-99); MONOCYTES % (AUTO) 5.8 % (3.0-13.0); NEUTROPHILS % (AUTO) 69.2 % (40.0-77.0); PLATELET COUNT (AUTO) 267 K/uL (130-400); RED BLOOD CELL COUNT(AUTO) 4.71 MIL/uL (4.00-5.50); RED CELL DISTRIBUTION WIDTH 17.5 % (11.0-15.5); WHITE BLOOD COUNT (AUTO) 5.7 K/uL (4.8-10.8)
[2021-10-04 15:19] LABS: CREATININE 2.2 mg/dL (0.5-1.5); POTASSIUM 4.3 mmol/L (3.5-5.1)
[2021-10-04 15:26] LABS: ALBUMIN 3.5 g/dL (3.5-5.0); BILIRUBIN,TOTAL 0.2 mg/dL (0.2-1.0); MAGNESIUM 2.2 mg/dL (1.80-2.40); TOTAL PROTEIN, SERUM 8.3 g/dL (6.0-8.3)
[2021-10-04] MEDS ORDERED: LOSA100T58 PO (16:12)
[2021-10-04] MEDS ORDERED: GABA-529 PO (16:12)
[2021-10-04] MEDS ORDERED: FLUO20CA36 PO (16:24)
[2021-10-04] MEDS ORDERED: FURO20TA4 PO (16:24)
[2021-10-04] MEDS ORDERED: OXCA150T27 PO (16:24)
[2021-10-04] MEDS ORDERED: ATOR40TA71 PO (16:24)
[2021-10-04] MEDS ORDERED: CARV3.12 PO (16:24)
[2021-10-04] MEDS ORDERED: ACET1TAB25 PO (16:24)
[2021-10-04] MEDS ORDERED: LEVE500T19 PO (16:24)
[2021-10-04] MEDS ORDERED: OXCA300T28 PO (16:24)
[2021-10-04] MEDS ORDERED: BUSP10TA3 PO (16:24)
[2021-10-04] MEDS ORDERED: LORAZEPAM 2 MG/ML 1 ML VIAL IVP ONE (16:30)
[2021-10-04] MEDS ORDERED: LEVETIRACETAM 500 MG/5 ML SD VIAL IV SCH ×2 (16:30→18:00)
[2021-10-04] MEDS ORDERED: LEVETIRACETAM 1,000 MG in 0.9%NACL 100ML 100 ML IV ONE (17:00)
[2021-10-04 17:19] LABS: APPEARANCE,URINE CLOUDY (CLEAR); BILIRUBIN,URINE NEGATIVE (NEGATIVE); COLOR,URINE YELLOW (YELLOW); GLUCOSE, URINE (UA) 250 mg/dL (NEGATIVE); KETONES,URINE NEGATIVE (NEGATIVE); LEUKOCYTE ESTERASE ,URINE MODERATE (NEGATIVE); NITRATE,URINE NEGATIVE (NEGATIVE); OCCULT BLOOD,URINE SMALL (NEGATIVE); PH,URINE 7.5 (5.0-8.0); PROTEIN,URINE 100 mg/dL (NEGATIVE); UROBILINOGEN,URINE 0.2 mg/dL (0.2-1.0)
[2021-10-04 17:27] LABS: AMPHET/METH SCREEN,URINE NEGATIVE (NEGATIVE); BARBITURATE SCREEN, URINE NEGATIVE (NEGATIVE); BENZODIAZEPINES SCREEN,URINE NEGATIVE (NEGATIVE); CANNABINOID SCREEN,URINE NEGATIVE (NEGATIVE); COCAINE SCREEN,URINE NEGATIVE (NEGATIVE); OPIATE SCREEN,URINE NEGATIVE (NEGATIVE); PHENCYCLIDINE SCREEN,URINE NEGATIVE (NEGATIVE)
[2021-10-04 17:35] LABS: WBC,URINE >100 /HPF (0-1)
[2021-10-04 17:36] LABS: BACTERIA,URINE Few /HPF (None Seen); SQUAMOUS EPITHELIAL CELL,UR Few /HPF (0-2)
[2021-10-04] MEDS ORDERED: [UNRECOGNIZED DRUG - OTHER] IV ONE (18:00)
[2021-10-04] MEDS ORDERED: LEVETIRACETAM IV ONE (18:00)
[2021-10-05] MEDS ORDERED: CEFTRIAXONE 1G VIAL IVP ONE (05:00)
[2021-10-05 05:45] VITALS: BP 152/70
[2021-10-05] MEDS ORDERED: LEVETIRACETAM 500 MG in 0.9%NACL 100ML 100 ML IV SCH (09:00)
[2021-10-05] MEDS ORDERED: LEVETIRACETAM 500 MG/5 ML SD VIAL IV SCH (09:00)
== END 2021-10-05 08:59 | disposition short-term general hospital (02) ==
LOC: EDH 14:41
DX: R41.82 Altered mental status, unspecified (principal); R56.9 Unspecified convulsions; R82.71 Bacteriuria; Z20.822 Contact with and (suspected) exposure to COVID-19; E11.22 Type 2 diabetes mellitus with diabetic chronic kidney disease; I12.0 Hypertensive chronic kidney disease with stage 5 chronic kidney disease or end stage renal disease; N18.6 End stage renal disease; Z79.899 Other long term (current) drug therapy; Z86.73 Personal history of transient ischemic attack (TIA), and cerebral infarction without residual deficits
CPT/HCPCS: 36415; 70450; 80053; 80177; 80305; 81001; 82948; 83735; 84484; 85025; 87088; 87635; 93005; 96365; 96366; 96375; 99285; C9803; J0696; J1953; J2060